=== PATIENT | female | born 1985 | race Caucasian/White ===

== ENCOUNTER 2018-04-08 22:12 | Emergency (ER) | payer MEDICAID, OTHER ==
[~2018-04-08] VITALS: Ht 177.8 cm; Wt 71.3 kg
[2018-04-08] MEDS ORDERED: AMOXIL PO STA (22:40)
[2018-04-08] MEDS ORDERED: TYLENOL #3 PO STA (22:40)
--- NOTE | 2018-04-08 22:44 | ER.PDOC ---
General Chief Complaint: Requesting Medical Care Stated Complaint: TOOTHACHE Time seen by MD: 22:40 Source: patient Exam Limitations: no limitations History of Present Illness Initial Comments Toothache for 2 days Timing/Duration: abrupt Associated Symptoms: toothache, jaw pain (R) Severity: moderate Prior symptoms/Treatment: Similar symptoms previous Allergies: Coded Allergies: tramadol (Verified Allergy, Unknown, 04/03/16) Past Medical History Medical History: no pertinent history Surgical History: tubal Constitutional: no symptoms reported Mouth: see HPI Throat: no symptoms reported Respiratory: no symptoms reported Cardiovascular: no symptoms reported Gastrointestinal: no symptoms reported All Other Systems: Reviewed and Negative Physical Exam General Appearance: alert, no distress Head/Neck: head nml inspection, neck nml inspection, trachea midline, no lymphadenopathy, thyroid nml Mouth: dental tenderness, widespread dental decay Throat: pharynx nml, voice nml, no airway problems Ears/Nose: nml inspection Respiratory: no resp. distress, lungs clear CVS: reg. rate & rhythm, heart sounds nml Abdomen: non-tender, no organomegaly Extremities: non-tender, ROM nml Skin Exam: Normal Color, Warm/Dry NEURO/PSYCH: oriented X3, mood/effect nml Departure Time of Disposition: 22:41 Disposition: 01 HOME, SELF-CARE Impression: Primary Impression: Infected dental caries Condition: Stable Referrals: PCP,UNKNOWN (PCP) PRIMARY CARE PROVIDER Additional Instructions: Amoxil Tylenol #3 F/U with your Dentist LUAN Duration or Time Spent with Pa: 30 mins SATHISH GOYAL MD Apr 08, 2018 22:44
[2018-04-08] MEDS ORDERED: AMOXIL PO ONE (22:52)
[2018-04-08] MEDS ORDERED: TYLENOL #3 PO ONE (22:53)
[2018-04-08 23:02] VITALS: BP 121/70
[2018-04-08 23:40] VITALS: BP 121/70
== END 2018-04-08 23:20 | disposition home or self-care (01) ==
LOC: ER 22:12
DX: K02.9 Dental caries, unspecified (principal); Z88.8 Allergy status to other drugs, medicaments and biological substances
CPT/HCPCS: 99283; J3490